=== PATIENT | male | born 1955 | race Caucasian/White ===

== ENCOUNTER 2017-01-10 17:03 | Emergency (ER) | payer MEDICAID ==
[~2017-01-10] VITALS: Ht 154.9 cm; Wt 82.0 kg
[2017-01-10] MEDS ORDERED: IBUPROFEN 800MG TABLET PO ONE (23:45)
[2017-01-11 00:13] LABS: BASOPHILS % 0.8 % (0.0-2.0); CHLORIDE 103 mEq/L (98-107); EOSINOPHILS % 2.7 % (0.0-5.0); HEMATOCRIT. 47.6 % (42.0-52.0); HEMOGLOBIN. 16.1 g/dL (14.0-18.0); LYMPHOCYTES % 27.6 % (20.0-50.0); MEAN CORPUSCULAR HEMOGLOBIN 31.1 pg (28.0-32.0); MEAN CORPUSCULAR VOLUME 91.9 fL (80.0-94.0); MEAN PLATELET VOLUME 7.9 fl (7.4-10.4); MONOCYTES % 8.3 % (2.0-8.0); NEUTROPHILS % 60.6 % (40.0-76.0); PLATELET 313 x1000/uL (130-400); RED BLOOD CELL COUNT 5.18 mill/uL (4.7-6.1); RED CELL DISTRIBUTION WIDTH 13.6 % (11.6-14.6)
[2017-01-11 00:15] VITALS: BP 182/110
[2017-01-11 00:22] LABS: CARBON DIOXIDE 27 mEq/L (21-32)
[2017-01-11] MEDS ORDERED: SIMETHICONE 80MG TABLET CHEW PO ONE (00:45)
== END 2017-01-11 01:15 | disposition home or self-care (01) ==
LOC: EDBD 17:03 → ER 17:03
DX: R10.12 Left upper quadrant pain (principal); I10 Essential (primary) hypertension; Z87.891 Personal history of nicotine dependence
CPT/HCPCS: 36415; 80053; 83690; 85025; 99284